=== PATIENT | male | born 1945 | race Caucasian/White ===

== ENCOUNTER 2021-07-10 07:19 | Inpatient (IN) ==
[2021-07-10] MEDS ORDERED: 0.9 % Sodium Chloride 1,000 ML ONE ×2 (07:33→07:52)
[2021-07-10] MEDS ORDERED: Heparin 1,000 UNITS/500 mL 500 ML ONE (07:52)
[2021-07-10] MEDS ORDERED: ISOVUE-370 200 ML INFUS..BTL ONE (07:52)
[2021-07-10] MEDS ORDERED: *HR* Heparin 10,000 UNIT/10 ML VIAL ONE (07:52)
[2021-07-10] MEDS ORDERED: Nitroglycerin 1,000 MCG/5 ML VIAL IV ONE (07:52)
[2021-07-10] MEDS ORDERED: *HR* FentaNYL (PF) 100 MCG/2 ML VIAL ONE (08:55)
[2021-07-10] MEDS ORDERED: *HR* Midazolam HCl 2 MG/2 ML VIAL ONE (08:56)
[2021-07-10] MEDS ORDERED: Perflutren Lipid Microsphere 1.3 ML in 0.9 % Sodium Chloride 8.7 ML IVP PRN (12:04)
[2021-07-10] MEDS ORDERED: Acetaminophen/Aspirin/Caffeine TABLET PO PRN (12:56)
[2021-07-10] MEDS ORDERED: Naloxone 0.4 MG/ML INJ IVP PRN (13:00)
[2021-07-10] MEDS ORDERED: lisinopriL 20 MG TABLET PO SCH (13:00)
[2021-07-10] MEDS ORDERED: *HR* Dextrose 50 % in Water (Syg) 50 ML SYRINGE IVP PRN (13:02)
[2021-07-10] MEDS ORDERED: Dextrose 4 GM Chewable Tablets PO PRN ×2 (13:02)
[2021-07-10] MEDS ORDERED: D5% in Water 1,000 ML IVC PRN (13:02)
[2021-07-10] MEDS: Insulin LISPRO 300 UNITS/3 ML VIAL SUBQ SCH ×2 (14:05→15:05)
[2021-07-10] MEDS: DilTIAZem CD (24hr) 240 MG CAP.ER.24H PO SCH (14:49)
[2021-07-10] MEDS ORDERED: Acetaminophen 325 MG TABLET PO ONE (14:55)
[2021-07-10 19:12] LABS: Basophils # 0.1 K/mcL (0.0-0.2); Basophils % 1.2 %; Eosinophils # 0.2 K/mcL (0.0-0.6); Eosinophils % 2.8 %; Hematocrit 37.9 % (37.5-50.1); Hemoglobin 12.5 g/dL (12.9-16.9); Immature Granulocytes % 0.4 % (0-4); Lymphocytes # 1.6 K/mcL (0.6-4.6); Lymphocytes % 23.4 %; Mean Corpuscular Hemoglobin 29.2 pg (28.0-33.3); Mean Corpuscular Volume 88.6 fL (83.0-100.0); Mean Platelet Volume 9.7 fL (9.4-12.4); Monocytes # 0.8 K/mcL (0.0-1.3); Monocytes % 11.3 %; Neutrophils # 4.2 K/mcL (1.6-8.9); Platelet Count 305 K/mcL (140-400); Red Blood Count 4.28 M/mcL (4.19-5.50); Red Cell Distribution Width 13.8 % (11.5-14.5); Segmented Neutrophils % 60.9 %; White Blood Count 6.8 K/mcL (4.3-11.1)
[2021-07-10 19:19] LABS: INR 1.1; Prothrombin Time 11.9 Seconds (9.4-12.1)
[2021-07-10 19:22] LABS: Activated Partial Thrombo Time 29.4 Seconds (26.0-36.0)
[2021-07-10 19:32] LABS: BUN/Creatinine Ratio 21 (6-26); Blood Urea Nitrogen 27 mg/dL (8-23); Carbon Dioxide 24 mEq/L (23-29); Chloride 107 mEq/L (98-107); Chol/HDL Ratio 3.7 (0-4.9); Cholesterol 128 mg/dL (< 200); Glucose 164 mg/dL (70-105); HDL Cholesterol 35 mg/dL (40-59); LDL Cholesterol,Calculated 66 mg/dL (< 100); Osmolality,Calculated 299 (280-300); Potassium 3.9 mEq/L (3.5-5.1); Sodium 140 mEq/L (136-145); Triglycerides 133 mg/dL (< 150); eGFR For African Americans > 60 (> 60); eGFR For Non-African Americans 53 (> 60)
[2021-07-10] MEDS: Chlorhexidine Rinse 15 ML MOUTHWASH MM SCH (20:03)
[2021-07-10 20:54] LABS: Estimated Average Glucose 148 mg/dl; Hemoglobin A1C 6.8 %
[2021-07-11 03:19] LABS: Basophils # 0.1 K/mcL (0.0-0.2); Eosinophils # 0.3 K/mcL (0.0-0.6); Eosinophils % 3.2 %; Hematocrit 38.1 % (37.5-50.1); Hemoglobin 12.4 g/dL (12.9-16.9); Immature Granulocytes % 0.3 % (0-4); Lymphocytes # 1.6 K/mcL (0.6-4.6); Lymphocytes % 19.8 %; Mean Corpuscular HGB Conc 32.5 g/dL (31.6-35.5); Mean Corpuscular Hemoglobin 28.9 pg (28.0-33.3); Mean Corpuscular Volume 88.8 fL (83.0-100.0); Mean Platelet Volume 9.9 fL (9.4-12.4); Monocytes # 0.9 K/mcL (0.0-1.3); Monocytes % 11.8 %; Platelet Count 316 K/mcL (140-400); Red Blood Count 4.29 M/mcL (4.19-5.50); Red Cell Distribution Width 13.7 % (11.5-14.5); Segmented Neutrophils % 63.9 %; White Blood Count 7.9 K/mcL (4.3-11.1)
[2021-07-11 03:28] LABS: INR 1.1; Prothrombin Time 12.1 Seconds (9.4-12.1)
[2021-07-11 03:44] LABS: BUN/Creatinine Ratio 26 (6-26); Blood Urea Nitrogen 29 mg/dL (8-23); Calcium 9.2 mg/dL (8.6-10.3); Carbon Dioxide 22 mEq/L (23-29); Chloride 108 mEq/L (98-107); Glucose 129 mg/dL (70-105); Osmolality,Calculated 298 (280-300); Potassium 3.7 mEq/L (3.5-5.1); Sodium 140 mEq/L (136-145); eGFR For African Americans > 60 (> 60); eGFR For Non-African Americans > 60 (> 60)
[2021-07-11] MEDS: Chlorhexidine Rinse 15 ML MOUTHWASH MM SCH ×2 (05:47→20:51)
[2021-07-11] MEDS ORDERED: NiCARdipine 2.5 MG/10 ML Syringe IVPB ONE (05:59)
[2021-07-11] MEDS ORDERED: DOBUTamine 1,000 MG/250 ML BAG ONE (05:59)
[2021-07-11] MEDS ORDERED: CeFAZolin Syr 2,000MG/20 ML 2,000 MG/20 ML SYRINGE IVPB ONE (06:00)
[2021-07-11] MEDS ORDERED: *HR* Enoxaparin 40 MG/0.4 ML SYRINGE SQ SCH (06:00)
[2021-07-11] MEDS ORDERED: Aspirin 81 MG TAB.CHEW PO ONE (06:00)
[2021-07-11] MEDS ORDERED: *HR* FentaNYL (PF) 1,000 MCG/20 ML VIAL ONE (06:04)
[2021-07-11] MEDS ORDERED: *HR* Midazolam HCl 5 MG/5 ML VIAL IVP ONE (06:04)
[2021-07-11] MEDS ORDERED: Papaverine 60 MG/2 ML VIAL IVP ONE (06:05)
[2021-07-11] MEDS ORDERED: *HR* Rocuronium Bromide 50 MG/5 ML VIAL ONE ×2 (06:06→09:45)
[2021-07-11] MEDS ORDERED: Tranexamic Acid 1,000 MG/10 ML VIAL ONE (06:07)
[2021-07-11] MEDS ORDERED: *HR* Etomidate 20 MG/10 ML AMPUL IVP ONE (06:07)
[2021-07-11] MEDS ORDERED: Protamine Sulfate 250 MG/25 ML VIAL IVP ONE (06:09)
[2021-07-11] MEDS ORDERED: Calcium Gluconate 1,000 MG/10 ML VIAL ONE (06:10)
[2021-07-11] MEDS ORDERED: niCARdipine 20 MG/200 ML MLS IVC ONE (06:11)
[2021-07-11] MEDS ORDERED: Heparin 15,000 UNIT in 0.9 % Sodium Chloride 500 ML IV ONE (07:00)
[2021-07-11] MEDS ORDERED: Buckersberg's Blood Cardioplegia PF ONE (07:00)
[2021-07-11] MEDS ORDERED: del Nido Cardioplegia Solution PF ONE ×2 (07:00)
[2021-07-11 08:39] LABS: ABG Base Excess 0 mEq/L (-2 to 3); ABG Chloride 108 mEq/L (98-107); ABG Glucose 153 mg/dL (60-95); ABG HCO3 24 mEq/L (21-27); ABG Ionized Calcium 1.23 mmol/L (1.15-1.35); ABG Oxygen Saturation 100 % (95-98); ABG PCO2 37 mmHg (35-45); ABG PH 7.42 pH Units (7.32-7.45); ABG PO2 251 mmHg (85-104); ABG TCO2 25 mEq/L (20-26)
[2021-07-11] MEDS ORDERED: hydroCHLOROthiazide 25 MG TABLET PO SCH (09:00)
[2021-07-11] MEDS ORDERED: carvediloL 6.25 MG TABLET PO SCH (09:00)
[2021-07-11 09:10] LABS: ABG Base Excess -1 mEq/L (-2 to 3); ABG Chloride 108 mEq/L (98-107); ABG Glucose 198 mg/dL (60-95); ABG HCO3 24 mEq/L (21-27); ABG Ionized Calcium 1.23 mmol/L (1.15-1.35); ABG Oxygen Saturation 99 % (95-98); ABG PCO2 40 mmHg (35-45); ABG PO2 115 mmHg (85-104); ABG TCO2 25 mEq/L (20-26)
[2021-07-11 09:41] LABS: ABG Base Excess 0 mEq/L (-2 to 3); ABG Chloride 103 mEq/L (98-107); ABG Glucose 160 mg/dL (60-95); ABG HCO3 24 mEq/L (21-27); ABG Ionized Calcium 1.02 mmol/L (1.15-1.35); ABG Oxygen Saturation 100 % (95-98); ABG PCO2 35 mmHg (35-45); ABG PH 7.44 pH Units (7.32-7.45); ABG PO2 609 mmHg (85-104); ABG TCO2 25 mEq/L (20-26)
[2021-07-11] MEDS ORDERED: Potassium Chloride 40 MEQ/200 ML BAG IVPB PRN (10:11)
[2021-07-11] MEDS ORDERED: Acetaminophen 325 MG TABLET PO PRN (10:11)
[2021-07-11] MEDS ORDERED: Calcium Gluconate 1gm/50mL 1 GM/50 ML BAG IVPB PRN (10:11)
[2021-07-11] MEDS ORDERED: Insulin Regular, Human 100 UNIT/ML IV PRN (10:11)
[2021-07-11] MEDS ORDERED: *HR* Dextrose 50 % in Water (Syg) 50 ML SYRINGE IVP PRN (10:11)
[2021-07-11] MEDS ORDERED: *HR* FentaNYL (PF) 100 MCG/2 ML VIAL IVP PRN (10:11)
[2021-07-11] MEDS ORDERED: DOBUTamine 1,000 MG/250 ML BAG IVC SCH (10:15)
[2021-07-11 10:17] LABS: ABG Base Excess -1 mEq/L (-2 to 3); ABG Chloride 104 mEq/L (98-107); ABG Glucose 200 mg/dL (60-95); ABG HCO3 23 mEq/L (21-27); ABG Ionized Calcium 1.49 mmol/L (1.15-1.35); ABG Oxygen Saturation 100 % (95-98); ABG PCO2 35 mmHg (35-45); ABG PH 7.42 pH Units (7.32-7.45); ABG PO2 555 mmHg (85-104); ABG TCO2 24 mEq/L (20-26)
[2021-07-11] MEDS: niCARdipine 20 MG/200 ML MLS IVC SCH ×3 (11:05→16:00)
[2021-07-11 11:24] LABS: ABG Base Excess -2 mEq/L (-2 to 3); ABG HCO3 24 mEq/L (21-27); ABG Oxygen Saturation 98 % (95-98); ABG PCO2 45 mmHg (35-45); ABG PH 7.34 pH Units (7.32-7.45); ABG PO2 107 mmHg (85-104); ABG TCO2 25 mEq/L (20-26); Blood Gas Modality ASSIST CONTROL; Blood Gas VT 500 cc
[2021-07-11 11:39] LABS: INR 1.2; Prothrombin Time 13.1 Seconds (9.4-12.1)
[2021-07-11 11:42] LABS: Activated Partial Thrombo Time 38.6 Seconds (26.0-36.0)
[2021-07-11] MEDS: DilTIAZem CD (24hr) 240 MG CAP.ER.24H PO SCH (11:50)
[2021-07-11] MEDS: Pantoprazole 40 MG VIAL IVP SCH (11:52)
[2021-07-11 11:53] LABS: BUN/Creatinine Ratio 23 (6-26); Blood Urea Nitrogen 23 mg/dL (8-23); Calcium 10.4 mg/dL (8.6-10.3); Carbon Dioxide 25 mEq/L (23-29); Chloride 109 mEq/L (98-107); Glucose 180 mg/dL (70-105); Magnesium 3.1 mg/dL (1.6-2.6); Osmolality,Calculated 296 (280-300); Potassium 4.1 mEq/L (3.5-5.1); Sodium 139 mEq/L (136-145); eGFR For African Americans > 60 (> 60); eGFR For Non-African Americans > 60 (> 60)
[2021-07-11 12:11] LABS: Basophils # 0.1 K/mcL (0.0-0.2); Basophils % 0.5 %; Eosinophils # 0.3 K/mcL (0.0-0.6); Eosinophils % 2.4 %; Hematocrit 32.7 % (37.5-50.1); Hemoglobin 10.9 g/dL (12.9-16.9); Immature Granulocytes % 0.5 % (0-4); Lymphocytes # 1.6 K/mcL (0.6-4.6); Lymphocytes % 12.5 %; Mean Corpuscular HGB Conc 33.3 g/dL (31.6-35.5); Mean Corpuscular Hemoglobin 29.9 pg (28.0-33.3); Mean Corpuscular Volume 89.8 fL (83.0-100.0); Mean Platelet Volume 9.7 fL (9.4-12.4); Monocytes # 0.6 K/mcL (0.0-1.3); Monocytes % 4.8 %; Neutrophils # 10.2 K/mcL (1.6-8.9); Platelet Count 237 K/mcL (140-400); Red Blood Count 3.64 M/mcL (4.19-5.50); Red Cell Distribution Width 13.6 % (11.5-14.5); Segmented Neutrophils % 79.3 %
[2021-07-11 12:16] LABS: White Blood Count 12.8 K/mcL (4.3-11.1)
[2021-07-11] MEDS: *HR* OxyCODONE/APAP 5/325 TABLET PO PRN ×3 (12:19→22:06)
[2021-07-11] MEDS ORDERED: Dexmedetomidine HCl 400 MCG/100 ML MLS IVC SCH (13:00)
[2021-07-11] MEDS: *HR* FentaNYL (PF) 100 MCG/2 ML VIAL IVP PRN ×3 (14:36→23:03)
[2021-07-11] MEDS: Norepinephrine 4 MG/254 ML IV.SOLN IVC SCH (15:28)
[2021-07-11] MEDS: CeFAZolin 2 GM/120 ML BAG IVPB SCH ×2 (15:33→23:49)
[2021-07-11 15:58] LABS: ABG Base Excess -3 mEq/L (-2 to 3); ABG HCO3 23 mEq/L (21-27); ABG Oxygen Saturation 95 % (95-98); ABG PCO2 43 mmHg (35-45); ABG PH 7.33 pH Units (7.32-7.45); ABG PO2 79 mmHg (85-104); ABG TCO2 24 mEq/L (20-26); Blood Gas Modality CPAP/PS; Blood Gas Pressure Support 5 cm H2O
[2021-07-11] MEDS: Aspirin Enteric Coated 81 MG Tablet PO SCH (16:23)
[2021-07-11] MEDS: Ondansetron 4 MG/2 ML VIAL IVP PRN (17:11)
[2021-07-11] MEDS ORDERED: *HR* Heparin 10,000 UNIT/10 ML VIAL IR ONE (18:14)
[2021-07-11] MEDS ORDERED: Tranexamic Acid 1,000 MG/10 ML VIAL IR ONE (18:14)
[2021-07-11] MEDS ORDERED: *HR* Magnesium Sulfate 2 GM/50 ML PIGGYBACK IVPB ONE (18:14)
[2021-07-11] MEDS ORDERED: Albumin Human 25% 25 GM/100 ML IV.SOLN IVPB ONE (18:14)
[2021-07-11] MEDS ORDERED: Lidocaine 2% Syringe 100 MG/5 ML IVP ONE (18:14)
[2021-07-11] MEDS ORDERED: *HR* Phenylephrine 10 MG/ML VIAL IVC ONE (18:14)
[2021-07-11 20:03] LABS: ABG Base Excess -3 mEq/L (-2 to 3); ABG HCO3 24 mEq/L (21-27); ABG Oxygen Saturation 94 % (95-98); ABG PCO2 49 mmHg (35-45); ABG PO2 77 mmHg (85-104); ABG TCO2 25 mEq/L (20-26); Blood Gas Modality 10LPM
[2021-07-12] MEDS: Norepinephrine 4 MG/254 ML IV.SOLN IVC SCH (02:13)
[2021-07-12] MEDS: niCARdipine 20 MG/200 ML MLS IVC SCH ×4 (02:14→17:23)
[2021-07-12] MEDS: *HR* OxyCODONE/APAP 5/325 TABLET PO PRN ×4 (02:34→22:54)
[2021-07-12 03:51] LABS: INR 1.1; Prothrombin Time 12.7 Seconds (9.4-12.1)
[2021-07-12 03:53] LABS: Basophils % 0.3 %; Hemoglobin 11.6 g/dL (12.9-16.9); Immature Granulocytes % 0.3 % (0-4); Lymphocytes # 0.9 K/mcL (0.6-4.6); Lymphocytes % 6.3 %; Mean Corpuscular HGB Conc 32.2 g/dL (31.6-35.5); Mean Corpuscular Hemoglobin 29.4 pg (28.0-33.3); Mean Corpuscular Volume 91.1 fL (83.0-100.0); Mean Platelet Volume 9.6 fL (9.4-12.4); Monocytes # 1.2 K/mcL (0.0-1.3); Monocytes % 8.3 %; Neutrophils # 12.3 K/mcL (1.6-8.9); Platelet Count 255 K/mcL (140-400); Red Blood Count 3.95 M/mcL (4.19-5.50); Red Cell Distribution Width 13.9 % (11.5-14.5); Segmented Neutrophils % 84.8 %; White Blood Count 14.5 K/mcL (4.3-11.1)
[2021-07-12 03:54] LABS: Activated Partial Thrombo Time 28.1 Seconds (26.0-36.0)
[2021-07-12 03:55] LABS: Calcium 9.2 mg/dL (8.6-10.3); Magnesium 2.1 mg/dL (1.6-2.6); Potassium 4.7 mEq/L (3.5-5.1)
[2021-07-12] MEDS ORDERED: *HR* Enoxaparin 30 MG/0.3 ML SYRINGE SQ SCH (06:00)
[2021-07-12] MEDS: *HR* FentaNYL (PF) 100 MCG/2 ML VIAL IVP PRN (06:23)
[2021-07-12] MEDS ORDERED: *HR* OxyCODONE/APAP 5/325 TABLET PO PRN (07:25)
[2021-07-12] MEDS: Albumin Human 5% 12.5 GM/250 ML IV.SOLN IVPB PRN ×2 (07:30→08:21)
[2021-07-12] MEDS: Aspirin Enteric Coated 81 MG Tablet PO SCH (07:45)
[2021-07-12] MEDS: Chlorhexidine Rinse 15 ML MOUTHWASH MM SCH ×2 (07:45→19:43)
[2021-07-12] MEDS: Pantoprazole 40 MG VIAL IVP SCH (07:45)
[2021-07-12] MEDS ORDERED: Norepinephrine 4 MG in 0.9 % Sodium Chloride 250 ML IVC PRN (07:45)
[2021-07-12] MEDS: Ondansetron 4 MG/2 ML VIAL IVP PRN ×2 (08:27→17:15)
[2021-07-12] MEDS: CeFAZolin 2 GM/120 ML BAG IVPB SCH ×4 (08:38→23:48)
[2021-07-12] MEDS ORDERED: Furosemide 20 MG/2 ML VIAL IVP SCH (09:00)
[2021-07-12] MEDS ORDERED: 0.9 % Sodium Chloride 500 ML ONE (10:07)
[2021-07-12] MEDS ORDERED: 0.9 % Sodium Chloride 500 ML IVC ONE (10:08)
[2021-07-12] MEDS ORDERED: Insulin LISPRO 300 UNITS/3 ML VIAL SUBQ SCH ×2 (11:30→21:00)
[2021-07-12] MEDS ORDERED: Insulin Regular, Human 100 UNIT/ML IV PRN (13:17)
[2021-07-12] MEDS ORDERED: *HR* Dextrose 50 % in Water (Syg) 50 ML SYRINGE IVP PRN (13:17)
[2021-07-12] MEDS ORDERED: D5% in Water 1,000 ML IVC PRN (13:17)
[2021-07-12] MEDS ORDERED: Dextrose 4 GM Chewable Tablets PO PRN ×2 (13:17)
[2021-07-12] MEDS ORDERED: Naloxone 0.4 MG/ML INJ IVP PRN (13:17)
[2021-07-12] MEDS: 0.9 % Sodium Chloride 1,000 ML IVC SCH (16:55)
[2021-07-12] MEDS: DOBUTamine 1,000 MG/250 ML BAG IVC SCH (16:56)
[2021-07-12] MEDS: Insulin LISPRO 300 UNITS/3 ML VIAL SUBQ SCH ×2 (17:22→19:38)
[2021-07-13] MEDS: niCARdipine 20 MG/200 ML MLS IVC SCH ×4 (02:45→13:36)
[2021-07-13 04:23] LABS: Basophils % 0.2 %; Eosinophils % 0.1 %; Hematocrit 31.6 % (37.5-50.1); Immature Granulocytes % 0.5 % (0-4); Lymphocytes # 0.9 K/mcL (0.6-4.6); Lymphocytes % 5.9 %; Mean Corpuscular HGB Conc 31.6 g/dL (31.6-35.5); Mean Corpuscular Hemoglobin 29.2 pg (28.0-33.3); Mean Corpuscular Volume 92.4 fL (83.0-100.0); Mean Platelet Volume 10.1 fL (9.4-12.4); Monocytes # 1.1 K/mcL (0.0-1.3); Monocytes % 7.2 %; Neutrophils # 13.1 K/mcL (1.6-8.9); Platelet Count 213 K/mcL (140-400); Red Blood Count 3.42 M/mcL (4.19-5.50); Red Cell Distribution Width 13.9 % (11.5-14.5); Segmented Neutrophils % 86.1 %; White Blood Count 15.2 K/mcL (4.3-11.1)
[2021-07-13 04:39] LABS: BUN/Creatinine Ratio 24 (6-26); Blood Urea Nitrogen 32 mg/dL (8-23); Calcium 8.3 mg/dL (8.6-10.3); Carbon Dioxide 23 mEq/L (23-29); Chloride 105 mEq/L (98-107); Glucose 111 mg/dL (70-105); Magnesium 1.9 mg/dL (1.6-2.6); Osmolality,Calculated 286 (280-300); Potassium 4.3 mEq/L (3.5-5.1); Sodium 134 mEq/L (136-145); eGFR For African Americans > 60 (> 60); eGFR For Non-African Americans 52 (> 60)
[2021-07-13] MEDS: *HR* OxyCODONE/APAP 5/325 TABLET PO PRN ×3 (05:16→23:41)
[2021-07-13] MEDS: *HR* Enoxaparin 40 MG/0.4 ML SYRINGE SQ SCH (05:17)
[2021-07-13] MEDS ORDERED: *HR* Enoxaparin 40 MG/0.4 ML SYRINGE SQ SCH (06:00)
[2021-07-13] MEDS ORDERED: *HR* Metoprolol 5 MG/5 ML VIAL IVP ONE (06:07)
[2021-07-13] MEDS: *HR* Metoprolol 5 MG/5 ML VIAL IVP ONE (06:07)
[2021-07-13] MEDS: 0.9 % Sodium Chloride 1,000 ML IVC SCH (06:30)
[2021-07-13] MEDS ORDERED: Amiodarone Premix 150 MG/100 ML BAG IVPB ONE (07:07)
[2021-07-13] MEDS ORDERED: Amiodarone Premix 360 MG/200 ML BAG IVC ONE (07:07)
[2021-07-13] MEDS: Ondansetron 4 MG/2 ML VIAL IVP PRN (08:02)
[2021-07-13] MEDS: Insulin LISPRO 300 UNITS/3 ML VIAL SUBQ SCH ×4 (08:22→20:46)
[2021-07-13] MEDS: CeFAZolin 2 GM/120 ML BAG IVPB SCH (08:25)
[2021-07-13] MEDS ORDERED: Furosemide 40 MG/4 ML VIAL IVP ONE (08:35)
[2021-07-13] MEDS: Aspirin Enteric Coated 81 MG Tablet PO SCH (08:48)
[2021-07-13] MEDS: DilTIAZem CD (24hr) 240 MG CAP.ER.24H PO SCH (08:49)
[2021-07-13] MEDS: Chlorhexidine Rinse 15 ML MOUTHWASH MM SCH ×2 (08:49→20:45)
[2021-07-13] MEDS: Albumin Human 5% 12.5 GM/250 ML IV.SOLN IVPB PRN ×2 (09:58→10:25)
[2021-07-13] MEDS: Pantoprazole 40 MG VIAL IVP SCH (11:24)
[2021-07-13] MEDS: DOBUTamine 1,000 MG/250 ML BAG IVC SCH (13:36)
[2021-07-13] MEDS: Amiodarone Premix 360 MG/200 ML BAG IVC SCH (14:24)
[2021-07-14] MEDS: Amiodarone Premix 360 MG/200 ML BAG IVC SCH ×2 (02:18→14:34)
[2021-07-14 05:55] LABS: Basophils % 0.1 %; Eosinophils % 0.1 %; Hematocrit 28.9 % (37.5-50.1); Hemoglobin 9.6 g/dL (12.9-16.9); Immature Granulocytes % 0.7 % (0-4); Lymphocytes # 0.9 K/mcL (0.6-4.6); Lymphocytes % 6.1 %; Mean Corpuscular HGB Conc 33.2 g/dL (31.6-35.5); Mean Corpuscular Hemoglobin 29.6 pg (28.0-33.3); Mean Corpuscular Volume 89.2 fL (83.0-100.0); Mean Platelet Volume 9.9 fL (9.4-12.4); Monocytes # 1.1 K/mcL (0.0-1.3); Monocytes % 7.4 %; Neutrophils # 12.7 K/mcL (1.6-8.9); Platelet Count 212 K/mcL (140-400); Red Blood Count 3.24 M/mcL (4.19-5.50); Segmented Neutrophils % 85.6 %; White Blood Count 14.8 K/mcL (4.3-11.1)
[2021-07-14] MEDS: *HR* Enoxaparin 40 MG/0.4 ML SYRINGE SQ SCH (05:56)
[2021-07-14 06:16] LABS: BUN/Creatinine Ratio 31 (6-26); Blood Urea Nitrogen 40 mg/dL (8-23); Calcium 8.5 mg/dL (8.6-10.3); Carbon Dioxide 22 mEq/L (23-29); Chloride 101 mEq/L (98-107); Glucose 174 mg/dL (70-105); Magnesium 2.4 mg/dL (1.6-2.6); Osmolality,Calculated 286 (280-300); Potassium 4.3 mEq/L (3.5-5.1); Sodium 131 mEq/L (136-145); eGFR For African Americans > 60 (> 60); eGFR For Non-African Americans 54 (> 60)
[2021-07-14] MEDS: Insulin LISPRO 300 UNITS/3 ML VIAL SUBQ SCH ×4 (07:34→19:54)
[2021-07-14] MEDS: Chlorhexidine Rinse 15 ML MOUTHWASH MM SCH ×2 (07:35→19:58)
[2021-07-14] MEDS: *HR* OxyCODONE/APAP 5/325 TABLET PO PRN ×4 (07:35→23:29)
[2021-07-14] MEDS: Pantoprazole 40 MG VIAL IVP SCH (07:36)
[2021-07-14] MEDS: DilTIAZem CD (24hr) 240 MG CAP.ER.24H PO SCH (07:36)
[2021-07-14] MEDS: Aspirin Enteric Coated 81 MG Tablet PO SCH (07:36)
[2021-07-14] MEDS ORDERED: Metoclopramide 10 MG/2 ML VIAL IVP ONE (11:04)
[2021-07-14] MEDS: Ondansetron 4 MG/2 ML VIAL IVP PRN (11:34)
[2021-07-14] MEDS: Sennosides 8.6 MG TABLET PO SCH (12:08)
[2021-07-14] MEDS: DOBUTamine 1,000 MG/250 ML BAG IVC SCH (14:15)
[2021-07-15] MEDS: Amiodarone Premix 360 MG/200 ML BAG IVC SCH ×2 (02:19→14:36)
[2021-07-15 04:11] LABS: Basophils % 0.1 %; Eosinophils # 0.1 K/mcL (0.0-0.6); Eosinophils % 0.5 %; Hematocrit 28.7 % (37.5-50.1); Hemoglobin 9.3 g/dL (12.9-16.9); Immature Granulocytes % 1.4 % (0-4); Lymphocytes % 6.7 %; Mean Corpuscular HGB Conc 32.4 g/dL (31.6-35.5); Mean Corpuscular Hemoglobin 29.1 pg (28.0-33.3); Mean Corpuscular Volume 89.7 fL (83.0-100.0); Mean Platelet Volume 9.6 fL (9.4-12.4); Monocytes # 1.5 K/mcL (0.0-1.3); Neutrophils # 11.9 K/mcL (1.6-8.9); Platelet Count 251 K/mcL (140-400); Red Cell Distribution Width 13.7 % (11.5-14.5); Segmented Neutrophils % 81.3 %; White Blood Count 14.7 K/mcL (4.3-11.1)
[2021-07-15 04:22] LABS: BUN/Creatinine Ratio 35 (6-26); Blood Urea Nitrogen 46 mg/dL (8-23); Calcium 8.4 mg/dL (8.6-10.3); Carbon Dioxide 23 mEq/L (23-29); Chloride 99 mEq/L (98-107); Glucose 154 mg/dL (70-105); Magnesium 2.5 mg/dL (1.6-2.6); Osmolality,Calculated 285 (280-300); Potassium 4.1 mEq/L (3.5-5.1); Sodium 130 mEq/L (136-145); eGFR For African Americans > 60 (> 60); eGFR For Non-African Americans 54 (> 60)
[2021-07-15] MEDS ORDERED: *HR* Metoprolol 5 MG/5 ML VIAL IVP PRN (06:00)
[2021-07-15] MEDS: *HR* Enoxaparin 40 MG/0.4 ML SYRINGE SQ SCH (06:09)
[2021-07-15] MEDS: *HR* OxyCODONE/APAP 5/325 TABLET PO PRN (06:17)
[2021-07-15] MEDS: DilTIAZem CD (24hr) 240 MG CAP.ER.24H PO SCH (08:31)
[2021-07-15] MEDS: Sennosides 8.6 MG TABLET PO SCH ×2 (08:31→20:48)
[2021-07-15] MEDS: Pantoprazole 40 MG VIAL IVP SCH (08:31)
[2021-07-15] MEDS: Aspirin Enteric Coated 81 MG Tablet PO SCH (08:31)
[2021-07-15] MEDS: Insulin LISPRO 300 UNITS/3 ML VIAL SUBQ SCH ×4 (08:33→20:50)
[2021-07-15] MEDS: *HR* Metoprolol 5 MG/5 ML VIAL IVP ONE (09:09)
[2021-07-15] MEDS: Chlorhexidine Rinse 15 ML MOUTHWASH MM SCH ×2 (10:12→20:48)
[2021-07-15] MEDS ORDERED: Amiodarone Premix 150 MG/100 ML BAG IVPB ONE (10:13)
[2021-07-15] MEDS: Ondansetron 4 MG/2 ML VIAL IVP PRN (10:30)
[2021-07-15] MEDS: Bumetanide 1 MG/4 ML VIAL IVP SCH ×2 (11:16→17:30)
[2021-07-15 12:55] LABS: Bilirubin,Urine Negative (Negative); Blood,Urine Trace (Negative); Clarity,Urine Clear (Clear); Color,Urine Light-Yellow (Yellow); Glucose,Urine (UA) Normal (Normal); Granular Casts,Urine Few per lpf (None Seen); Hyaline Casts,Urine Many per lpf (None Seen); Ketones,Urine Negative (Negative); Leukocyte Esterase,Urine Trace (Negative); Mucus,Urine Few per lpf (None-Few); Nitrite,Urine Negative (Negative); PH,Urine 5.5 pH Units (5.0-8.0); Protein,Urine 30 mg/dL (Neg-Trace); Specific Gravity,Urine 1.019 (1.010-1.025); Squamous Epithelial Cell,Urine Few per hpf (None-Few); Transitional Epi Cells,Urine Few per hpf (None-Few); Urobilinogen,Urine Normal (Normal)
[2021-07-15] MEDS: DOBUTamine 1,000 MG/250 ML BAG IVC SCH (14:43)
[2021-07-15] MEDS: Acetaminophen 325 MG TABLET PO PRN (16:14)
[2021-07-15] MEDS: Metoclopramide 10 MG/2 ML VIAL IVP PRN (17:30)
[2021-07-15] MEDS: Potassium Chloride Elixir 20 MEQ/15 ML UDC PO SCH (20:48)
[2021-07-16] MEDS: Acetaminophen 325 MG TABLET PO PRN (00:32)
[2021-07-16] MEDS: Amiodarone Premix 360 MG/200 ML BAG IVC SCH ×2 (02:46→16:26)
[2021-07-16] MEDS: *HR* OxyCODONE/APAP 5/325 TABLET PO PRN (03:07)
[2021-07-16 03:09] LABS: Basophils % 0.2 %; Eosinophils # 0.1 K/mcL (0.0-0.6); Eosinophils % 0.7 %; Hematocrit 27.7 % (37.5-50.1); Hemoglobin 9.1 g/dL (12.9-16.9); Immature Granulocytes % 0.8 % (0-4); Lymphocytes # 0.8 K/mcL (0.6-4.6); Lymphocytes % 6.4 %; Mean Corpuscular HGB Conc 32.9 g/dL (31.6-35.5); Mean Corpuscular Hemoglobin 29.2 pg (28.0-33.3); Mean Corpuscular Volume 88.8 fL (83.0-100.0); Mean Platelet Volume 9.7 fL (9.4-12.4); Monocytes # 1.3 K/mcL (0.0-1.3); Monocytes % 10.2 %; Nucleated Red Blood Cells 0.2 /100 WBC (0); Platelet Count 275 K/mcL (140-400); Red Blood Count 3.12 M/mcL (4.19-5.50); Red Cell Distribution Width 13.9 % (11.5-14.5); Segmented Neutrophils % 81.7 %; White Blood Count 12.3 K/mcL (4.3-11.1)
[2021-07-16 03:26] LABS: BUN/Creatinine Ratio 36 (6-26); Blood Urea Nitrogen 50 mg/dL (8-23); Calcium 8.4 mg/dL (8.6-10.3); Carbon Dioxide 23 mEq/L (23-29); Chloride 98 mEq/L (98-107); Glucose 170 mg/dL (70-105); Magnesium 2.4 mg/dL (1.6-2.6); Osmolality,Calculated 285 (280-300); Potassium 4.1 mEq/L (3.5-5.1); Sodium 129 mEq/L (136-145); eGFR For African Americans > 60 (> 60); eGFR For Non-African Americans 50 (> 60)
[2021-07-16] MEDS ORDERED: polyethylene glycoL 3350 17 GM POWD.PACK PO PRN (04:53)
[2021-07-16] MEDS ORDERED: Bisacodyl 10 MG RECTAL SUPPOSITORY RC PRN (04:53)
[2021-07-16] MEDS: *HR* Enoxaparin 40 MG/0.4 ML SYRINGE SQ SCH (06:29)
[2021-07-16] MEDS ORDERED: Milk and Molasses Enema 200 ML RC ONE (07:15)
[2021-07-16] MEDS: Chlorhexidine Rinse 15 ML MOUTHWASH MM SCH ×2 (07:55→21:36)
[2021-07-16] MEDS: Bumetanide 1 MG/4 ML VIAL IVP SCH ×2 (07:55→16:24)
[2021-07-16] MEDS: Sennosides 8.6 MG TABLET PO SCH (07:55)
[2021-07-16] MEDS: Potassium Chloride Elixir 20 MEQ/15 ML UDC PO SCH ×2 (07:55→23:21)
[2021-07-16] MEDS: Aspirin Enteric Coated 81 MG Tablet PO SCH (07:55)
[2021-07-16] MEDS: DilTIAZem CD (24hr) 240 MG CAP.ER.24H PO SCH (07:55)
[2021-07-16] MEDS: Pantoprazole 40 MG VIAL IVP SCH (07:56)
[2021-07-16] MEDS: Insulin LISPRO 300 UNITS/3 ML VIAL SUBQ SCH ×4 (07:58→21:35)
[2021-07-16] MEDS ORDERED: Amiodarone Premix 150 MG/100 ML BAG IVPB ONE (08:15)
[2021-07-16] MEDS ORDERED: Simethicone 80 MG TAB.CHEW PO PRN (16:08)
[2021-07-16] MEDS: Metoclopramide 10 MG/2 ML VIAL IVP PRN (16:14)
[2021-07-16] MEDS: Ondansetron 4 MG/2 ML VIAL IVP PRN (19:50)
[2021-07-16] MEDS ORDERED: *HR* Promethazine 25 MG/ML VIAL IM ONE (22:03)
[2021-07-16] MEDS ORDERED: Lidocaine HCL 4 ML Topical Solution (Laryng-O-Jet Kit Sterile Pak) TP ONE (23:15)
[2021-07-17] MEDS: Sennosides 8.6 MG TABLET PO SCH ×3 (00:58→20:32)
[2021-07-17] MEDS: Metoclopramide 10 MG/2 ML VIAL IVP PRN (03:12)
[2021-07-17 04:28] LABS: Basophils % 0.2 %; Eosinophils % 0.1 %; Hematocrit 29.4 % (37.5-50.1); Hemoglobin 9.6 g/dL (12.9-16.9); Immature Granulocytes % 1.2 % (0-4); Lymphocytes # 0.9 K/mcL (0.6-4.6); Lymphocytes % 7.1 %; Mean Corpuscular HGB Conc 32.7 g/dL (31.6-35.5); Mean Corpuscular Hemoglobin 28.9 pg (28.0-33.3); Mean Corpuscular Volume 88.6 fL (83.0-100.0); Mean Platelet Volume 9.8 fL (9.4-12.4); Monocytes # 1.3 K/mcL (0.0-1.3); Monocytes % 9.8 %; Neutrophils # 10.5 K/mcL (1.6-8.9); Nucleated Red Blood Cells 0.4 /100 WBC (0); Platelet Count 343 K/mcL (140-400); Red Blood Count 3.32 M/mcL (4.19-5.50); Red Cell Distribution Width 13.9 % (11.5-14.5); Segmented Neutrophils % 81.6 %; White Blood Count 12.9 K/mcL (4.3-11.1)
[2021-07-17 04:41] LABS: BUN/Creatinine Ratio 39 (6-26); Blood Urea Nitrogen 42 mg/dL (8-23); Calcium 8.6 mg/dL (8.6-10.3); Carbon Dioxide 27 mEq/L (23-29); Chloride 98 mEq/L (98-107); Glucose 170 mg/dL (70-105); Magnesium 2.2 mg/dL (1.6-2.6); Osmolality,Calculated 292 (280-300); Potassium 3.8 mEq/L (3.5-5.1); Sodium 134 mEq/L (136-145); eGFR For African Americans > 60 (> 60); eGFR For Non-African Americans > 60 (> 60)
[2021-07-17] MEDS: *HR* Enoxaparin 40 MG/0.4 ML SYRINGE SQ SCH (05:07)
[2021-07-17] MEDS: Amiodarone Premix 360 MG/200 ML BAG IVC SCH ×2 (05:07→11:44)
[2021-07-17] MEDS ORDERED: *HR* Metoprolol 5 MG/5 ML VIAL IVP ONE ×3 (06:24→16:41)
[2021-07-17] MEDS: niCARdipine 20 MG/200 ML MLS IVC SCH ×8 (07:24→19:32)
[2021-07-17] MEDS ORDERED: DilTIAZem 50 MG/50 ML IV.SOLN IVC SCH (08:15)
[2021-07-17] MEDS ORDERED: Aspirin 81 MG TAB.CHEW GTUBE SCH (09:00)
[2021-07-17] MEDS: Bumetanide 1 MG/4 ML VIAL IVP SCH (09:29)
[2021-07-17] MEDS: Chlorhexidine Rinse 15 ML MOUTHWASH MM SCH ×2 (09:29→20:32)
[2021-07-17] MEDS: Docusate Oral Soln 100 MG/10 ML UDC GTUBE SCH ×2 (09:29→20:32)
[2021-07-17] MEDS: Pantoprazole 40 MG VIAL IVP SCH (09:30)
[2021-07-17] MEDS: Metoclopramide 20 MG in 0.9 % Sodium Chloride 50 ML IVPB SCH ×2 (11:46→17:11)
[2021-07-17] MEDS: D5% in 0.45% NACL w KCl 20 MEQ/1,000 ML MLS IVC SCH ×2 (11:52→19:42)
[2021-07-17] MEDS: Insulin LISPRO 300 UNITS/3 ML VIAL SUBQ SCH ×3 (13:56→16:58)
[2021-07-17] MEDS: DOBUTamine 1,000 MG/250 ML BAG IVC SCH ×2 (19:25→19:26)
[2021-07-18] MEDS: Amiodarone Premix 360 MG/200 ML BAG IVC SCH (00:08)
[2021-07-18] MEDS: Metoclopramide 20 MG in 0.9 % Sodium Chloride 50 ML IVPB SCH ×2 (00:08→08:08)
[2021-07-18] MEDS: niCARdipine 20 MG/200 ML MLS IVC SCH ×3 (00:09→14:39)
[2021-07-18] MEDS: Insulin LISPRO 300 UNITS/3 ML VIAL SUBQ SCH ×5 (00:09→23:43)
[2021-07-18] MEDS: D5% in 0.45% NACL w KCl 20 MEQ/1,000 ML MLS IVC SCH ×3 (04:08→14:54)
[2021-07-18] MEDS: *HR* Enoxaparin 40 MG/0.4 ML SYRINGE SQ SCH (05:37)
[2021-07-18 06:04] LABS: Basophils # 0.1 K/mcL (0.0-0.2); Basophils % 0.4 %; Eosinophils % 0.3 %; Hematocrit 30.1 % (37.5-50.1); Hemoglobin 9.8 g/dL (12.9-16.9); Immature Granulocytes % 1.6 % (0-4); Lymphocytes # 0.8 K/mcL (0.6-4.6); Lymphocytes % 5.4 %; Mean Corpuscular HGB Conc 32.6 g/dL (31.6-35.5); Mean Corpuscular Hemoglobin 29.1 pg (28.0-33.3); Mean Corpuscular Volume 89.3 fL (83.0-100.0); Mean Platelet Volume 9.7 fL (9.4-12.4); Monocytes # 1.5 K/mcL (0.0-1.3); Monocytes % 10.8 %; Neutrophils # 11.5 K/mcL (1.6-8.9); Nucleated Red Blood Cells 0.3 /100 WBC (0); Platelet Count 348 K/mcL (140-400); Red Blood Count 3.37 M/mcL (4.19-5.50); Segmented Neutrophils % 81.5 %; White Blood Count 14.1 K/mcL (4.3-11.1)
[2021-07-18 06:25] LABS: BUN/Creatinine Ratio 30 (6-26); Blood Urea Nitrogen 28 mg/dL (8-23); Carbon Dioxide 27 mEq/L (23-29); Chloride 101 mEq/L (98-107); Glucose 229 mg/dL (70-105); Magnesium 1.9 mg/dL (1.6-2.6); Osmolality,Calculated 293 (280-300); Potassium 4.3 mEq/L (3.5-5.1); Sodium 135 mEq/L (136-145); eGFR For African Americans > 60 (> 60); eGFR For Non-African Americans > 60 (> 60)
[2021-07-18] MEDS ORDERED: *HR* Metoprolol 5 MG/5 ML VIAL IVP ONE ×2 (06:40→08:07)
[2021-07-18] MEDS ORDERED: Acetaminophen IV 1,000 MG/100 ML BAG IVPB ONE (08:06)
[2021-07-18] MEDS: Chlorhexidine Rinse 15 ML MOUTHWASH MM SCH ×2 (08:08→20:26)
[2021-07-18] MEDS: Pantoprazole 40 MG VIAL IVP SCH (08:09)
[2021-07-18] MEDS: carvediloL 6.25 MG TABLET PO SCH ×2 (09:23→16:53)
[2021-07-18] MEDS: Sennosides 8.6 MG TABLET PO SCH ×2 (11:02→19:23)
[2021-07-18] MEDS: Docusate Oral Soln 100 MG/10 ML UDC GTUBE SCH ×2 (11:02→19:23)
[2021-07-18] MEDS: *HR* Amiodarone 200 MG TABLET PO SCH ×2 (12:06→20:26)
[2021-07-18] MEDS: Bumetanide 1 MG/4 ML VIAL IVP SCH ×2 (12:08→20:26)
[2021-07-18] MEDS: *HR* Labetalol 20 MG/4 ML SYRINGE IVP PRN ×3 (12:08→18:07)
[2021-07-18] MEDS: DOBUTamine 1,000 MG/250 ML BAG IVC SCH (14:39)
[2021-07-19] MEDS: D5% in 0.45% NACL w KCl 20 MEQ/1,000 ML MLS IVC SCH (02:19)
[2021-07-19] MEDS: Insulin LISPRO 300 UNITS/3 ML VIAL SUBQ SCH ×5 (05:43→21:20)
[2021-07-19] MEDS: *HR* Enoxaparin 40 MG/0.4 ML SYRINGE SQ SCH (06:00)
[2021-07-19] MEDS: *HR* Amiodarone 200 MG TABLET PO SCH ×2 (07:50→21:07)
[2021-07-19] MEDS: carvediloL 6.25 MG TABLET PO SCH ×2 (07:50→17:20)
[2021-07-19] MEDS: Sennosides 8.6 MG TABLET PO SCH ×2 (07:50→21:10)
[2021-07-19] MEDS: Docusate Oral Soln 100 MG/10 ML UDC GTUBE SCH (07:51)
[2021-07-19] MEDS: Bumetanide 1 MG/4 ML VIAL IVP SCH ×2 (07:51→21:08)
[2021-07-19] MEDS: Pantoprazole 40 MG VIAL IVP SCH (07:51)
[2021-07-19] MEDS: Aspirin 81 MG TAB.CHEW PO SCH (07:56)
[2021-07-19] MEDS ORDERED: carvediloL 6.25 MG TABLET PO SCH (08:45)
[2021-07-19] MEDS: *HR* Labetalol 20 MG/4 ML SYRINGE IVP PRN ×2 (09:10→09:27)
[2021-07-19] MEDS: Docusate Oral Soln 100 MG/10 ML UDC PO SCH ×2 (09:10→21:10)
[2021-07-19] MEDS ORDERED: carvediloL 6.25 MG TABLET PO ONE (09:33)
[2021-07-19 10:02] LABS: ABG Base Excess -2 mEq/L (-2 to 3); ABG Chloride 106 mEq/L (98-107); ABG Glucose 200 mg/dL (60-95); ABG HCO3 22 mEq/L (21-27); ABG Ionized Calcium 1.77 mmol/L (1.15-1.35); ABG Oxygen Saturation 99 % (95-98); ABG PCO2 35 mmHg (35-45); ABG PH 7.41 pH Units (7.32-7.45); ABG PO2 154 mmHg (85-104); ABG TCO2 23 mEq/L (20-26)
[2021-07-19 11:31] LABS: Basophils # 0.1 K/mcL (0.0-0.2); Basophils % 0.6 %; Eosinophils # 0.3 K/mcL (0.0-0.6); Eosinophils % 2.2 %; Hematocrit 29.8 % (37.5-50.1); Hemoglobin 9.6 g/dL (12.9-16.9); Immature Granulocytes % 1.4 % (0-4); Lymphocytes # 1.2 K/mcL (0.6-4.6); Lymphocytes % 8.9 %; Mean Corpuscular HGB Conc 32.2 g/dL (31.6-35.5); Mean Corpuscular Hemoglobin 29.2 pg (28.0-33.3); Mean Corpuscular Volume 90.6 fL (83.0-100.0); Mean Platelet Volume 9.4 fL (9.4-12.4); Monocytes # 1.1 K/mcL (0.0-1.3); Neutrophils # 10.5 K/mcL (1.6-8.9); Platelet Count 401 K/mcL (140-400); Red Blood Count 3.29 M/mcL (4.19-5.50); Red Cell Distribution Width 13.6 % (11.5-14.5); Segmented Neutrophils % 78.9 %; White Blood Count 13.3 K/mcL (4.3-11.1)
[2021-07-19 11:54] LABS: Alanine Aminotransferase 25 Units/L (7-52); Albumin 2.7 g/dL (3.5-5.7); Aspartate Amino Transferase 26 Units/L (13-39); BUN/Creatinine Ratio 32 (6-26); Bilirubin,Total 0.6 mg/dL (0.3-1.0); Blood Urea Nitrogen 28 mg/dL (8-23); Carbon Dioxide 27 mEq/L (23-29); Chloride 100 mEq/L (98-107); Globulin 2.7 g/dL (2.4-3.5); Glucose 204 mg/dL (70-105); Osmolality,Calculated 289 (280-300); Potassium 3.9 mEq/L (3.5-5.1); Sodium 134 mEq/L (136-145); Total Protein 5.4 g/dL (6.4-8.9); eGFR For African Americans > 60 (> 60); eGFR For Non-African Americans > 60 (> 60)
[2021-07-19 12:48] LABS: Alkaline Phosphatase 74 Units/L (34-104)
[2021-07-19 22:26] LABS: Bilirubin,Urine Negative (Negative); Blood,Urine Negative (Negative); Clarity,Urine Clear (Clear); Color,Urine Light-Yellow (Yellow); Glucose,Urine (UA) Normal (Normal); Ketones,Urine Negative (Negative); Leukocyte Esterase,Urine Negative (Negative); Nitrite,Urine Negative (Negative); Protein,Urine Negative (Neg-Trace); Urobilinogen,Urine Normal (Normal)
[2021-07-20] MEDS: *HR* Enoxaparin 40 MG/0.4 ML SYRINGE SQ SCH (05:25)
[2021-07-20 06:07] LABS: Basophils # 0.1 K/mcL (0.0-0.2); Basophils % 0.4 %; Eosinophils # 0.5 K/mcL (0.0-0.6); Eosinophils % 3.8 %; Hematocrit 29.3 % (37.5-50.1); Hemoglobin 9.4 g/dL (12.9-16.9); Immature Granulocytes % 1.3 % (0-4); Lymphocytes # 1.2 K/mcL (0.6-4.6); Lymphocytes % 9.8 %; Mean Corpuscular HGB Conc 32.1 g/dL (31.6-35.5); Mean Corpuscular Hemoglobin 28.7 pg (28.0-33.3); Mean Corpuscular Volume 89.6 fL (83.0-100.0); Mean Platelet Volume 9.4 fL (9.4-12.4); Monocytes % 7.9 %; Neutrophils # 9.7 K/mcL (1.6-8.9); Platelet Count 448 K/mcL (140-400); Red Blood Count 3.27 M/mcL (4.19-5.50); Red Cell Distribution Width 13.4 % (11.5-14.5); Segmented Neutrophils % 76.8 %; White Blood Count 12.7 K/mcL (4.3-11.1)
[2021-07-20 06:45] LABS: BUN/Creatinine Ratio 29 (6-26); Blood Urea Nitrogen 29 mg/dL (8-23); Calcium 8.2 mg/dL (8.6-10.3); Carbon Dioxide 27 mEq/L (23-29); Chloride 100 mEq/L (98-107); Glucose 146 mg/dL (70-105); Osmolality,Calculated 290 (280-300); Potassium 3.6 mEq/L (3.5-5.1); Sodium 136 mEq/L (136-145); eGFR For African Americans > 60 (> 60); eGFR For Non-African Americans > 60 (> 60)
[2021-07-20 08:09] LABS: Magnesium 1.6 mg/dL (1.6-2.6)
[2021-07-20] MEDS: Insulin LISPRO 300 UNITS/3 ML VIAL SUBQ SCH ×4 (08:09→21:47)
[2021-07-20] MEDS: Aspirin 81 MG TAB.CHEW PO SCH (08:11)
[2021-07-20] MEDS: *HR* Amiodarone 200 MG TABLET PO SCH ×2 (08:11→21:46)
[2021-07-20] MEDS: Sennosides 8.6 MG TABLET PO SCH (08:11)
[2021-07-20] MEDS: carvediloL 6.25 MG TABLET PO SCH ×2 (08:11→16:53)
[2021-07-20] MEDS: Docusate Oral Soln 100 MG/10 ML UDC PO SCH (08:12)
[2021-07-20] MEDS: Bumetanide 1 MG/4 ML VIAL IVP SCH ×2 (08:13→21:46)
[2021-07-20] MEDS: *HR* Labetalol 20 MG/4 ML SYRINGE IVP PRN (23:54)
[2021-07-21] MEDS ORDERED: *HR* Metoprolol 5 MG/5 ML VIAL IVP ONE (03:44)
[2021-07-21] MEDS: *HR* Enoxaparin 40 MG/0.4 ML SYRINGE SQ SCH (04:49)
[2021-07-21] MEDS: Bumetanide 1 MG/4 ML VIAL IVP SCH (09:36)
[2021-07-21] MEDS: carvediloL 6.25 MG TABLET PO SCH ×2 (09:37→16:47)
[2021-07-21] MEDS: *HR* Amiodarone 200 MG TABLET PO SCH (09:37)
[2021-07-21] MEDS: Aspirin 81 MG TAB.CHEW PO SCH (09:37)
[2021-07-21] MEDS: Insulin LISPRO 300 UNITS/3 ML VIAL SUBQ SCH ×3 (09:38→16:48)
[2021-07-21 14:25] LABS: Hematocrit 32.1 % (37.5-50.1); Hemoglobin 10.6 g/dL (12.9-16.9); Mean Corpuscular Hemoglobin 29.6 pg (28.0-33.3); Mean Corpuscular Volume 89.7 fL (83.0-100.0); Mean Platelet Volume 9.2 fL (9.4-12.4); Platelet Count 499 K/mcL (140-400); Red Blood Count 3.58 M/mcL (4.19-5.50); Red Cell Distribution Width 13.5 % (11.5-14.5); White Blood Count 12.9 K/mcL (4.3-11.1)
[2021-07-21] MEDS: *HR* OxyCODONE/APAP 5/325 TABLET PO PRN (14:33)
[2021-07-21 14:44] LABS: BUN/Creatinine Ratio 29 (6-26); Blood Urea Nitrogen 30 mg/dL (8-23); Calcium 8.3 mg/dL (8.6-10.3); Carbon Dioxide 28 mEq/L (23-29); Chloride 99 mEq/L (98-107); Glucose 181 mg/dL (70-105); Magnesium 1.5 mg/dL (1.6-2.6); Osmolality,Calculated 293 (280-300); Potassium 3.6 mEq/L (3.5-5.1); Sodium 136 mEq/L (136-145); eGFR For African Americans > 60 (> 60); eGFR For Non-African Americans > 60 (> 60)
[2021-07-21 16:17] VITALS: BP 113/51; PULSE 79; TEMP 98.1; O2SAT 91
[2021-07-21] MEDS ORDERED: *HR* Amiodarone 200 MG TABLET PO SCH (21:00)
== END 2021-07-21 17:40 | disposition home health service (06) | DRG 233 ==
LOC: INVDIALAB 07:19 → 2ANU 07:19 → SUATTDRO 15:03 → ICNU 07-11 09:43 → 2NNU 07-13 16:51
PROVIDERS: ADMIT Internal Medicine; ATTEND Family Medicine